=== PATIENT | male | born 1990 | race American Indian/Alaskan Native ===

== ENCOUNTER 2017-04-02 01:57 | Emergency (ER) | payer SELFPAY ==
[2017-04-02 02:27] VITALS: BP 151/112
== END 2017-04-02 03:30 | disposition left against medical advice (07) ==
LOC: ED 01:57
DX: K08.89 Other specified disorders of teeth and supporting structures (principal); Z53.21 Procedure and treatment not carried out due to patient leaving prior to being seen by health care provider

== ENCOUNTER 2017-04-02 14:57 | Emergency (ER) | payer SELFPAY ==
[2017-04-02] MEDS ORDERED: NORCO 7.5/325 PO ONE (19:03)
--- NOTE | 2017-04-02 19:08 | Emergency Department Report ---
ED ENT HPI - General Chief complaint: Dental/Oral Stated complaint: TOOTHACHE Time Seen by Provider: 04/02/17 18:52 Source: patient Mode of arrival: Ambulatory Limitations: No Limitations - History of Present Illness Initial comments: This is a 26-year-old male well-nourished with nontoxic or ill in appearance that complaining of a toothache for the past 3 days. Patient denies fever, chills, headache, stiff neck, nausea vomiting, chest pain, short of breath, abdominal pain, numbness or tingling sensation. Patient's is present at bedside. 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 Pt denies any pus or drainage. Denies swelling. Denies drug allergies or past medical history. Patient denies having a PCP or agricultural commodities inspector. MD complaint: tooth pain -: Gradual, days(s) (3) Location: tooth # (19,20,21) Severity scale (0 -10): 10 Quality: aching Consistency: constant Improves with: none Context- Dental: history of dental caries Associated Symptoms: toothache. denies: fever, cough, gum swelling, pain with swallowing, sore throat, tinnitus, hearing loss, discharge from ear, rhinorrhea - Related Data Previous Rx's Medication Instructions Recorded Last Taken Type ALBUTEROL Inhaler [ProAir HFA 2 puff IH QID PRN #1 inhalation 12/04/15 Unknown Rx Inhaler] Azithromycin [Zithromax TAB] 250 mg PO QDAY #6 tablet 12/04/15 Unknown Rx Fexofenadine/Pseudoephedrine 1 each PO Q12H #20 tab.er.12h 12/04/15 Unknown Rx [Melany-D 12 Hour Tablet] Prednisone [predniSONE 10 mg 10 mg PO .TAPER #1 tab.ds.pk 12/04/15 Unknown Rx (6-Day Pack, 21 Tabs)] guaiFENesin/CODEINE [Robitussin AC] 5 ml PO TID #90 oral.liqd 12/04/15 Unknown Rx Amoxicillin/K Clav Tab [Augmentin 1 tab PO Q12HR 10 Days 04/02/17 Unknown Rx 875 mg] Ibuprofen [Motrin 600 MG tab] 600 mg PO Q8H PRN #15 tablet 04/02/17 Unknown Rx Allergies Allergy/AdvReac Type Severity Reaction Status Date / Time No Known Allergies Allergy Unverified 12/04/15 08:23 ED Dental HPI - General Chief complaint: Dental/Oral Stated complaint: TOOTHACHE Time Seen by Provider: 04/02/17 18:52 Source: patient Mode of arrival: Ambulatory Limitations: No Limitations - Related Data Previous Rx's Medication Instructions Recorded Last Taken Type ALBUTEROL Inhaler [ProAir HFA 2 puff IH QID PRN #1 inhalation 12/04/15 Unknown Rx Inhaler] Azithromycin [Zithromax TAB] 250 mg PO QDAY #6 tablet 12/04/15 Unknown Rx Fexofenadine/Pseudoephedrine 1 each PO Q12H #20 tab.er.12h 12/04/15 Unknown Rx [Melany-D 12 Hour Tablet] Prednisone [predniSONE 10 mg 10 mg PO .TAPER #1 tab.ds.pk 12/04/15 Unknown Rx (6-Day Pack, 21 Tabs)] guaiFENesin/CODEINE [Robitussin AC] 5 ml PO TID #90 oral.liqd 12/04/15 Unknown Rx Amoxicillin/K Clav Tab [Augmentin 1 tab PO Q12HR 10 Days 04/02/17 Unknown Rx 875 mg] Ibuprofen [Motrin 600 MG tab] 600 mg PO Q8H PRN #15 tablet 04/02/17 Unknown Rx Allergies Allergy/AdvReac Type Severity Reaction Status Date / Time No Known Allergies Allergy Unverified 12/04/15 08:23 ED Review of Systems ROS: Stated complaint: TOOTHACHE Other details as noted in HPI Constitutional: denies: chills, fever Eyes: denies: eye pain, eye discharge, vision change ENT: denies: ear pain, throat pain Respiratory: denies: cough, shortness of breath, wheezing Cardiovascular: denies: chest pain, palpitations Endocrine: no symptoms reported Gastrointestinal: denies: abdominal pain, nausea, diarrhea Genitourinary: denies: urgency, dysuria Musculoskeletal: denies: back pain, joint swelling, arthralgia Skin: denies: rash, lesions Neurological: denies: headache, weakness, paresthesias Psychiatric: denies: anxiety, depression Hematological/Lymphatic: denies: easy bleeding, easy bruising ED Past Medical Hx - Past Medical History Previous Medical History?: No - Surgical History Past Surgical History?: No - Social History Smoking Status: Current Every Day Smoker Substance Use Type: None - Medications Home Medications: Home Medications Medication Instructions Recorded Confirmed Last Taken Type ALBUTEROL Inhaler [ProAir HFA 2 puff IH QID PRN #1 inhalation 12/04/15 Unknown Rx Inhaler] Azithromycin [Zithromax TAB] 250 mg PO QDAY #6 tablet 12/04/15 Unknown Rx Fexofenadine/Pseudoephedrine 1 each PO Q12H #20 tab.er.12h 12/04/15 Unknown Rx [Melany-D 12 Hour Tablet] Prednisone [predniSONE 10 mg 10 mg PO .TAPER #1 tab.ds.pk 12/04/15 Unknown Rx (6-Day Pack, 21 Tabs)] guaiFENesin/CODEINE [Robitussin AC] 5 ml PO TID #90 oral.liqd 12/04/15 Unknown Rx Amoxicillin/K Clav Tab [Augmentin 1 tab PO Q12HR 10 Days 04/02/17 Unknown Rx 875 mg] Ibuprofen [Motrin 600 MG tab] 600 mg PO Q8H PRN #15 tablet 04/02/17 Unknown Rx ED Physical Exam - General Limitations: No Limitations General appearance: alert, in no apparent distress - Head Head exam: Present: atraumatic, normocephalic, normal inspection - Eye Eye exam: Present: normal appearance, PERRL, EOMI. Absent: scleral icterus, conjunctival injection, nystagmus, periorbital swelling, periorbital tenderness Pupils: Present: normal accommodation - ENT ENT exam: Present: normal exam, normal orophraynx, mucous membranes moist, TM's normal bilaterally, normal external ear exam - Expanded ENT Exam Expanded Ear exam: Present: normal external inspection Mouth exam: Present: normal external inspection, tongue normal. Absent: drooling, trismus, muffled voice, tongue elevation, laceration Teeth exam: Present: dental caries, dental tenderness # (19), gingival enlargement 1 - Dental Tenderness, Other (carries) Throat exam: Positive: normal inspection. Negative: tonsillar erythema, tonsillomegaly, tonsillar exudate, R peritonsillar mass, L peritonsillar mass - Neck Neck exam: Present: normal inspection, full ROM. Absent: tenderness, meningismus, lymphadenopathy, thyromegaly - Respiratory Respiratory exam: Present: normal lung sounds bilaterally. Absent: respiratory distress, wheezes, rales, rhonchi, stridor, chest wall tenderness, accessory muscle use, decreased breath sounds, prolonged expiratory - Cardiovascular Cardiovascular Exam: Present: regular rate, normal rhythm, normal heart sounds. Absent: bradycardia, tachycardia, irregular rhythm, systolic murmur, diastolic murmur, rubs, gallop - GI/Abdominal GI/Abdominal exam: Present: soft, normal bowel sounds. Absent: distended, tenderness, guarding, rebound, rigid, diminished bowel sounds - Rectal Rectal exam: Present: deferred - Extremities Exam Extremities exam: Present: normal inspection, full ROM, normal capillary refill. Absent: tenderness, pedal edema, joint swelling, calf tenderness - Back Exam Back exam: Present: normal inspection, full ROM. Absent: tenderness, CVA tenderness (R), CVA tenderness (L), muscle spasm, paraspinal tenderness, vertebral tenderness, rash noted - Neurological Exam Neurological exam: Present: alert, oriented X3, CN II-XII intact, normal gait - Psychiatric Psychiatric exam: Present: normal affect, normal mood - Skin Skin exam: Present: warm, dry, intact, normal color. Absent: rash ED Course Vital Signs 04/02/17 04/02/17 04/02/17 15:01 19:07 19:37 Temperature 99.4 F 97.8 F Pulse Rate 102 H 82 Respiratory 18 18 16 Rate Blood Pressure 151/103 Blood Pressure [Left] Blood Pressure 164/119 [Right] O2 Sat by Pulse 96 99 Oximetry 04/02/17 04/02/17 04/02/17 19:38 19:43 20:15 Temperature Pulse Rate 82 67 Respiratory Rate Blood Pressure 160/120 Blood Pressure [Left] Blood Pressure 160/120 167/116 [Right] O2 Sat by Pulse Oximetry 04/02/17 20:44 Temperature Pulse Rate 67 Respiratory 16 Rate Blood Pressure Blood Pressure 150/93 [Left] Blood Pressure 155/100 [Right] O2 Sat by Pulse 100 Oximetry - Reevaluation(s) Reevaluation #1: 04/02/17 19:41 Patient is doing well with no complaints. ED Medical Decision Making - Medical Decision Making This is a 26-year-old male that presents with multiple dental carries 1- after my physical exam, patient received Byron 7.5mg for pain. Pt and spouse was instructed not to operate heavy machinery due to sedation and have the drive the pt home. 2- Pt received Augmentin 875mg PO at the time of d/c and was instructed to finish full course of antibiotics 3- patient was instructed to follow-up with a dentist in 24 hours. 4- at time time of discharge, the patient does not seem toxic or ill in appearance. No acute signs of distress noted. Patient agrees to discharge treatment plan of care. No further questions noted by the patient. 5- Due to his b/p elevated, patient received Catapres 0.2 mg in ED. Patient was instructed to follow up with his primary care doctor/agricultural commodities inspector within 24 hours due to elevated blood pressure. Critical care attestation.: If time is entered above; I have spent that time in minutes in the direct care of this critically ill patient, excluding procedure time. ED Disposition Clinical Impression: Dental caries Disposition: DC-01 TO HOME OR SELFCARE Is pt being admited?: No Does the pt Need Aspirin: No Condition: Stable Instructions: Ibuprofen (By mouth), Amoxicillin/Clavulanate Potassium (By mouth ), Dental Caries (ED) Additional Instructions: Follow-up with her primary care doctor/agricultural commodities inspector in 24 hours due to high blood pressure. Take full course of antibiotics as prescribed for 10 days. Follow-up with the dentist in 24 hours or if symptoms worsen suggestive neck, fever, chills, pus, drainage, chest pain, shortness of breath, and herbal pain before back to emergency room as soon as possible. Prescriptions: Amoxicillin/K Clav Tab [Augmentin 875 mg] 1 tab PO Q12HR 10 Days Ibuprofen [Motrin 600 MG tab] 600 mg PO Q8H PRN #15 tablet PRN Reason: Pain Referrals: PRIMARY CARE,MD [Primary Care Provider] - 3-5 Days [facility] [Outside] - 3-5 Days [facility] [Outside] - 24 Hours Forms: Work/School Release Form(ED)
[2017-04-02] MEDS ORDERED: CATAPRES PO ONE (19:39)
[2017-04-02 20:45] VITALS: BP 155/100
== END 2017-04-02 20:54 | disposition home or self-care (01) ==
LOC: ED 14:57
DX: K02.9 Dental caries, unspecified (principal); F17.200 Nicotine dependence, unspecified, uncomplicated
CPT/HCPCS: 99282